=== PATIENT | male | born 1935 ===

== ENCOUNTER 2016-06-20 15:24 | Emergency (ER) | payer OTHER ==
[2016-06-20 15:38] VITALS: BP 141/78; PULSE 69; RESP 20; TEMP 97.9; O2SAT 90
--- NOTE | 2016-06-20 16:02 | ED PDOC ---
HPI: General Adult Time Seen by Provider: 06/20/16 15:58 Chief Complaint (Nursing): Shortness Of Breath History Per: Patient History/Exam Limitations: no limitations Additional Complaint(s): 81yo male comes to the ED with family for complaint of 2 weeks of shortness of breath, especially at night causing trouble sleeping. Also reports chronic leg swelling which is now moderate. PMD: Cecil Casanova Cardiology: Merle sob 2 weeks especially at night causign trouble sleeping. leg swelling chronic for a long time. now pretty moderate. 2 years ago had oxygen. no cp. left shoulder left knee and right lumbar pain which is chronic. Past Medical History Reviewed: Historical Data, Nursing Documentation, Vital Signs Vital Signs: Last Vital Signs Temp 97.9 F 06/20/16 15:35 Pulse 69 06/20/16 15:35 Resp 20 06/20/16 16:06 BP 141/78 06/20/16 15:35 Pulse Ox 90 L 06/20/16 22:16 - Medical History PMH: HTN - Family History Family History: States: No Known Family Hx - Social History Current smoker - smoking cessation education provided: No Ex-Smoker (has not smoked in the last 12 months): Yes Drugs: Denies - Home Medications Home Medications: Ambulatory Orders Medication Instructions Recorded Clopidogrel [Plavix] 1 tab PO DAILY 06/20/16 Metoprolol Tartrate [Lopressor] 25 mg PO DAILY 06/20/16 Valsartan/Hydrochlorothiazide 1 tab PO DAILY 06/20/16 [Diovan Hct 320-25 mg Tablet] amLODIPine [Norvasc] 1 tab PO DAILY 06/20/16 traMADol [Ultram] 50 mg PO TID PRN 4 Days 06/20/16 - Allergies Allergies/Adverse Reactions: Allergies Allergy/AdvReac Type Severity Reaction Status Date / Time Penicillins Allergy RASH Verified 06/20/16 15:33 Review of Systems ROS Statement: Except As Marked, All Systems Reviewed And Found Negative (and as per HPI) Cardiovascular: Positive for: Paroxysmal Noc. Dyspnea. Negative for: Chest Pain Respiratory: Positive for: Cough, Sputum. Negative for: Hemoptysis Musculoskeletal: Positive for: Shoulder Pain, Back Pain Physical Exam - Reviewed Nursing Documentation Reviewed: Yes Vital Signs Reviewed: Yes - Physical Exam Appears: Positive for: Well, Non-toxic, No Acute Distress Head Exam: Positive for: ATRAUMATIC, NORMAL INSPECTION, NORMOCEPHALIC Skin: Positive for: Warm, Dry Eye Exam: Positive for: EOMI, PERRL ENT: Negative for: Pharyngeal Erythema, Tonsillar Exudate Neck: Positive for: Painless ROM, Supple Cardiovascular/Chest: Positive for: Regular Rate, Rhythm, Chest Non Tender. Negative for: Murmur Respiratory: Positive for: Rales (at the bases, minimal), Other (clear to auscultation). Negative for: Respiratory Distress Gastrointestinal/Abdominal: Positive for: Soft, Other (protuberant). Negative for: Tenderness Back: Positive for: Other (tenderness to palpation right SI joint. Negative straight leg raise.) Extremity: Positive for: Other (2+ pitting edema left lower leg, 1+ pitting edema right lower extremity) Lymphatic: Negative for: Adenopathy Neurologic/Psych: Positive for: Alert. Negative for: Motor/Sensory Deficits - Laboratory Results Result Diagrams: 06/20/16 16:34 06/20/16 16:34 - ECG ECG: Positive for: Interpreted By Me, Viewed By Me ECG Rhythm: Positive for: Sinus Rhythm, Right Bundle Branch Block Interpretation Of ECG: Marked T wave inversions V1-V5. O2 Sat by Pulse Oximetry: 90 Medical Decision Making Medical Decision Making: XR Lumbar Spine December 2015 arthritis impression shortness of breath, nocturnal chf paroxysmal noctural dyspnea, renal insufficience, pleural effusion, pneumonia, PE, DVT Labs demonstrate elevated ddimer, elevated troponin, otherwise no clinically significant lab abnormalities. CT chest ordered. 8p DW Dr Bloom Cardiology. He reports that patient's symptoms are chronic for him. If workup negative, pt can be discahrged and f/u wiht him in AM. EXAM: CT Angiography Chest With Intravenous Contrast CLINICAL HISTORY: 81 years old, male; Signs and symptoms; Shortness of breath; Additional info: SOB TECHNIQUE: Axial computed tomographic angiography images of the chest with intravenous contrast using pulmonary embolism protocol. This CT exam was performed using one or more of the following dose reduction techniques: automated exposure control, adjustment of the mA and/or kV according to patient size, and/or use of iterative reconstruction technique. MIP reconstructed images were created and reviewed. Coronal and sagittal reformatted images were created and reviewed. CONTRAST: 80 mL of [id number] administered intravenously. COMPARISON: No relevant prior studies available. FINDINGS: Pulmonary arteries: No pulmonary embolism. Aorta: Moderate atherosclerotic disease of aorta with mild peripheral thrombus within descending thoracic aorta. Ectasia of ascending thoracic aorta, up to 4.1 cm in diameter. Ectasia of descending thoracic aorta, up to 3.8 cm in diameter. Lungs: Mild peripheral atelectasis/scarring. No consolidation. Few calcified granulomas. Pleural space: No significant effusion. No pneumothorax. Heart: Mild cardiomegaly. No significant pericardial effusion. Mediastinum: Small hiatal hernia. Bones/joints: Degenerative changes of spine. No acute fracture. Soft tissues: Unremarkable. Lymph nodes: No pathologically enlarged lymph nodes. Liver: Hepatic cyst. Kidneys and ureters: Few probable renal cysts. IMPRESSION: 1. No CT evidence of pulmonary embolism. 2. Incidental/non-acute findings are described above Repeat troponin negative Disposition - Clinical Impression Clinical Impression: Lumbar degenerative disc disease, CHF (congestive heart failure) Counseled Patient/Family Regarding: Studies Performed, Diagnosis, Need For Followup, Rx Given - Disposition Referrals: Santana Bloom MD [Staff Provider] - ([facility]) Disposition: Routine/Home Disposition Time: 22:00 Condition: GOOD Prescriptions: traMADol [Ultram] 50 mg PO TID PRN 4 Days PRN Reason: SEVERE PAIN ONLY Instructions: Heart Failure (ED), Leg Edema (ED), Degenerative Disc Disease (ED ) Print Language: CITIZEN OF [place] Additional Comments - Additional Comments Additional Comments: Scribe Attestation: Documented by Eber Anderson acting as a scribe for Susan Thompson MD. Provider Scribe Attestation: All medical record entries made by the Scribe were at my direction and personally dictated by me. I have reviewed the chart and agree that the record accurately reflects my personal performance of the history, physical exam, medical decision making, and the department course for this patient. I have also personally directed, reviewed, and agree with the discharge instructions and disposition.
[2016-06-20 16:40] LABS: BASO # 0.1 K/uL (0.0-0.2); BASO % 0.7 % (0.0-2.0); EOS # 0.3 K/uL (0.0-0.7); EOS % 4.3 % (0.0-4.0); HEMATOCRIT 42.5 % (35.0-51.0); LYMPH # 1.8 K/uL (1.0-4.3); MEAN CELL VOLUME 96.9 fl (80.0-94.0); MEAN CORPUSCULAR HEMOGLOBIN 32.3 pg (27.0-31.0); MEAN CORPUSCULAR HGB CONC 33.4 g/dL (33.0-37.0); MEAN PLATELET VOLUME 7.4 fl (7.2-11.7); MONO # 0.6 K/uL (0.0-0.8); NEUT # 4.8 K/uL (1.8-7.0); NRBC % 0.1 % (0.0-0.0); RED CELL DISTRIBUTION WIDTH 14.7 % (11.5-14.5); WHITE BLOOD COUNT 7.6 K/uL (4.8-10.8)
--- NOTE | 2016-06-20 16:49 | RAD ---
HISTORY: chest pain COMPARISON: 03/14/2012 FINDINGS: LUNGS: No active pulmonary disease. PLEURA: No significant pleural effusion identified, no pneumothorax apparent. CARDIOVASCULAR: Grossly normal heart size. Sternotomy wires noted. No congestive change. OSSEOUS STRUCTURES: No significant abnormalities. VISUALIZED UPPER ABDOMEN: Normal. OTHER FINDINGS: None. IMPRESSION: No active disease.
[2016-06-20 16:52] LABS: ALKALINE PHOSPHATASE 68 U/L (38-126); ALT/SGPT 26 U/L (21-72); AST/SGOT 31 U/L (17-59); BLOOD UREA NITROGEN 21 mg/dl (9-20); CALCIUM 10.3 mg/dL (8.4-10.2); CARBON DIOXIDE 30 mmol/L (22-30); CHLORIDE 98 mmol/L (98-107); GFR AFRICAN-AMERICAN > 60; GLUCOSE,RANDOM 92 mg/dL (75-110); PHOSPHOROUS 3.3 mg/dl (2.5-4.5); POTASSIUM 4.5 MMOL/L (3.6-5.0); SODIUM 136 mmol/l (132-148); TOTAL PROTEIN 7.6 G/DL (6.3-8.2)
[2016-06-20 17:11] LABS: PARTIAL THROMBOPLASTIN TIME 25.9 SECONDS (23.3-32.5)
--- NOTE | 2016-06-20 17:29 | US ---
PROCEDURE: Bilateral lower extremity venous duplex Doppler. HISTORY: leg swelling COMPARISON: Left lower extremity Doppler ultrasound performed 08/06/14 TECHNIQUE: Bilateral common femoral, superficial femoral, popliteal and posterior tibial veins were evaluated. Flow was assessed with color Doppler, compressibility, assessment of phasic flow and augmentation response. FINDINGS: COMMON FEMORAL VEIN: Right CFV: Unremarkable. Left CFV: Unremarkable. SUPERFICIAL FEMORAL VEIN: Right SFV: Unremarkable. Left SFV: Unremarkable. POPLITEAL VEIN: Right Popliteal: Unremarkable. Left Popliteal: Unremarkable. POSTERIOR TIBIAL VEIN: Right PTV: Unremarkable. Left PTV: Unremarkable. OTHER FINDINGS: None. IMPRESSION: No evidence of deep venous thrombosis.
[2016-06-20] MEDS ORDERED: Iodixanol 320 MG/ML 100 ML BOTTLE IV ONE (20:27)
[2016-06-20] MEDS ORDERED: Sodium Chloride 0.9% 50 ML IV ONE (20:27)
--- NOTE | 2016-06-20 21:39 | CT ---
EXAM: CT Angiography Chest With Intravenous Contrast CLINICAL HISTORY: 81 years old, male; Signs and symptoms; Shortness of breath; Additional info: SOB TECHNIQUE: Axial computed tomographic angiography images of the chest with intravenous contrast using pulmonary embolism protocol. This CT exam was performed using one or more of the following dose reduction techniques: automated exposure control, adjustment of the mA and/or kV according to patient size, and/or use of iterative reconstruction technique. MIP reconstructed images were created and reviewed. Coronal and sagittal reformatted images were created and reviewed. CONTRAST: 80 mL of administered intravenously. COMPARISON: No relevant prior studies available. FINDINGS: Pulmonary arteries: No pulmonary embolism. Aorta: Moderate atherosclerotic disease of aorta with mild peripheral thrombus within descending thoracic aorta. Ectasia of ascending thoracic aorta, up to 4.1 cm in diameter. Ectasia of descending thoracic aorta, up to 3.8 cm in diameter. Lungs: Mild peripheral atelectasis/scarring. No consolidation. Few calcified granulomas. Pleural space: No significant effusion. No pneumothorax. Heart: Mild cardiomegaly. No significant pericardial effusion. Mediastinum: Small hiatal hernia. Bones/joints: Degenerative changes of spine. No acute fracture. Soft tissues: Unremarkable. Lymph nodes: No pathologically enlarged lymph nodes. Liver: Hepatic cyst. Kidneys and ureters: Few probable renal cysts. IMPRESSION: 1. No CT evidence of pulmonary embolism. 2. Incidental/non-acute findings are described above.
== END 2016-06-20 22:31 | disposition home or self-care (01) ==
LOC: H.ER 15:24
DX: M51.36 Other intervertebral disc degeneration, lumbar region (principal); I50.9 Heart failure, unspecified; R60.9 Edema, unspecified; R06.02 Shortness of breath; I10 Essential (primary) hypertension; Z87.891 Personal history of nicotine dependence; Z88.0 Allergy status to penicillin
CPT/HCPCS: 71010; 71275; 80053; 83735; 83880; 84100; 84443; 84484; 85025; 85378; 85610; 85730; 93970; 99285; Q9967

== ENCOUNTER 2018-02-15 08:43 | Emergency (ER) | payer OTHER ==
[2018-02-15 08:47] VITALS: BMI 31.9
[2018-02-15] MEDS ORDERED: Lidocaine 5% Patch TD STA (09:32)
[2018-02-15] MEDS ORDERED: Lidocaine 5% Patch TD ONE (10:06)
[2018-02-15 10:14] LABS: BASO # 0.1 K/uL (0.0-0.2); EOS # 0.2 K/uL (0.0-0.7); EOS % 2.5 % (0.0-4.0); HEMOGLOBIN 14.6 g/dL (12.0-18.0); LYMPH # 1.2 K/uL (1.0-4.3); LYMPH % 16.6 % (20.0-40.0); MEAN CELL VOLUME 96.9 fl (80.0-94.0); MEAN CORPUSCULAR HEMOGLOBIN 31.5 pg (27.0-31.0); MEAN CORPUSCULAR HGB CONC 32.5 g/dL (33.0-37.0); MEAN PLATELET VOLUME 7.7 fl (7.2-11.7); MONO # 0.6 K/uL (0.0-0.8); MONO % 8.1 % (0.0-10.0); NEUT # 5.2 K/uL (1.8-7.0); NEUT % 71.8 % (50.0-75.0); NRBC % 0.1 % (0.0-0.0); RBC 4.63 Mil/uL (4.40-5.90); RED CELL DISTRIBUTION WIDTH 13.7 % (11.5-14.5); WHITE BLOOD COUNT 7.2 K/uL (4.8-10.8)
[2018-02-15 10:28] LABS: ALB/GLOB RATIO 1.1 (1.0-2.1); ALBUMIN 4.1 g/dL (3.5-5.0); ALT/SGPT 24 U/L (21-72); AST/SGOT 26 U/L (17-59); BLOOD UREA NITROGEN 22 mg/dl (9-20); CALCIUM 10.1 mg/dL (8.4-10.2); GFR NON-AFRICAN AMERICAN > 60
[2018-02-15 10:30] LABS: BARBITURATES, UR NEGATIVE (NEGATIVE); BENZODIAZEPINES, UR NEGATIVE (NEGATIVE); OPIATES, UR NEGATIVE (NEGATIVE); PHENCYCLIDINE, UR NEGATIVE (NEGATIVE)
--- NOTE | 2018-02-15 10:34 | ED PDOC ---
HPI: Back Time Seen by Provider: 02/15/18 09:03 Chief Complaint (Nursing): Back Pain History Per: Manager Title Onset/Duration Of Symptoms: Days (x1 week) Additional Complaint(s): Yoshi Alexandre is a 82 year old male with a past medical history of HTN, who presents to the emergency department accompanied by his daughter for atraumatic bilateral lower back pain that radiates to both hips and down the left knee, onset x1 week. Patient reports he has a history of "pinched nerve" and was diagnosed via CT scan more than x2 years ago. He did not get an MRI done because he has a pacemaker. Patient further states he has not taken any medications to relieve his symptoms. Patient further reports he used to have physical therapy for lower back and followed up with Dr. Nico Casanova for pain relief. He reports to have urinary frequency but denies hematuria, dysuria, incontinence, trauma, abdominal pain, weakness, fever, and chills. PMD: Nico Casanova Past Medical History Reviewed: Historical Data, Nursing Documentation, Vital Signs Vital Signs: Last Vital Signs Temp 97.3 F L 02/15/18 08:46 Pulse 73 02/15/18 08:46 Resp 17 02/15/18 08:46 BP 153/83 H 02/15/18 08:46 Pulse Ox 93 L 02/15/18 08:46 - Medical History PMH: HTN - Surgical History Surgical History: No Surg Hx - Family History Family History: States: Unknown Family Hx - Home Medications Home Medications: Ambulatory Orders Medication Instructions Recorded Clopidogrel [Plavix] 1 tab PO DAILY 06/20/16 Metoprolol Tartrate [Lopressor] 25 mg PO DAILY 06/20/16 RX: amLODIPine [Norvasc] 1 tab PO DAILY 06/20/16 RX: traMADol [Ultram] 50 mg PO TID PRN 4 Days tab 06/20/16 Valsartan/Hydrochlorothiazide 1 tab PO DAILY 06/20/16 [Diovan Hct 320-25 mg Tablet] Lidocaine 5% [Lidoderm] 1 ea TD DAILY PRN #10 patch 02/15/18 Tramadol HCl [Ultram] 50 mg PO BID PRN #10 tablet 02/15/18 - Allergies Allergies/Adverse Reactions: Allergies Allergy/AdvReac Type Severity Reaction Status Date / Time Penicillins Allergy RASH Verified 06/20/16 15:33 Review of Systems ROS Statement: Except As Marked, All Systems Reviewed And Found Negative Constitutional: Negative for: Fever, Chills Gastrointestinal: Negative for: Abdominal Pain Genitourinary Male: Positive for: Frequency. Negative for: Dysuria, Incontinence, Hematuria Musculoskeletal: Positive for: Back Pain, Other (hip pain/left knee pain) Neurological: Negative for: Weakness Physical Exam - Reviewed Nursing Documentation Reviewed: Yes Vital Signs Reviewed: Yes - Physical Exam Appears: Positive for: No Acute Distress Cardiovascular/Chest: Positive for: Regular Rate, Rhythm. Negative for: Murmur Respiratory: Positive for: Normal Breath Sounds. Negative for: Respiratory Distress Back: Positive for: Other (bilateral paralumbar tenderness). Negative for: L CVA Tenderness, R CVA Tenderness, Vertebral Tenderness Extremity: Positive for: Normal ROM, Other (lower extremity strength 5/5). Negative for: Pedal Edema, Deformity Neurologic/Psych: Positive for: Alert, Oriented (x3), Gait (steady and unassisted ) - Laboratory Results Result Diagrams: 02/15/18 10:00 02/15/18 10:00 - ECG O2 Sat by Pulse Oximetry: 93 (RA) Pulse Ox Interpretation: Abnormal Medical Decision Making Medical Decision Making: Time: 931 Plan: --CMP --Urine drug screen --ED urine dipstick --CBC with differential --Flexeril 10 mg PO --Lidoderm 1 ea --Ultram 50 mg PO --LS spine ap/lat --Urinalysis --CT abd/pelvis IV contrast On re-evaluation pt. reports moderate pain relief. CT abd/pelvis: There is aneurysmal dilatation of the descending thoracic aorta measuring over 4.4 cm in greatest transverse dimension. Atherosclerotic plaque changes are present as well. Multiple bilateral renal cysts as described. There are 2 small low-attenuation foci within the hepatic parenchyma the largest likely representing a hepatic cyst. 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 substation superintendent [id number] Dr. Briggs discussed CT results with patient and with daughter at bedside. Advised to f/u with Dr. Casanova or CT surgeon for further evaluation of enlarging aortic aneurysm. Pt. verbalized correct understanding of necessary care and f/u. Gait steady, unassisted. Reports pain is still minimal at this time. Repeat VS improved. Scribe Attestation: Documented by Syed Saucedo, acting as a scribe for Darin Stapleton Provider Scribe Attestation: All medical record entries made by the Scribe were at my direction and personally dictated by me. I have reviewed the chart and agree that the record accurately reflects my personal performance of the history, physical exam, medic al decision making, and the department course for this patient. I have also personally directed, reviewed, and agree with the discharge instructions and disposition. Disposition - Clinical Impression Clinical Impression: Low back pain - Patient ED Disposition Is Patient to be Admitted: No - Disposition Referrals: [facility] [Outside] Disposition: Routine/Home Disposition Time: 15:46 Condition: IMPROVED Additional Instructions: FOLLOW UP WITH DR. CASANOVA FOR FURTHER EVALUATION RETURN TO ED IMMEDIATELY IF SYMPTOMS WORSEN YOSHI ALEXANDRE, thank you for letting us take care of you today. Your provider was Jose Juan Briggs III, DO and you were treated for RT SIDE LOWER BACK PAIN. The emergency medical care you received today was directed at your acute symptoms. If you were prescribed any medication, please fill it and take as directed. It may take several days for your symptoms to resolve. Return to the Emergency Department if your symptoms worsen, do not improve, or if you have any other problems. Please contact your doctor or call one of the physicians/clinics you have been referred to that are listed on the Patient Visit Information form that is included in your discharge packet. Bring any paperwork you were given at discharge with you along with any medications you are taking to your follow up visit. Our treatment cannot replace ongoing medical care by a primary care provider outside of the emergency department. Thank you for allowing the [facility] team to be part of your care today. If you had an X-Ray or CT scan: A Radiologist will review the ED reading if any change in treatment is needed we will contact you. If you had a blood, urine, or wound culture: It will take several days for the results, if any change in treatment is needed we will contact you. If you had an STI test: It will take 48 hours for the results. Please call after 1 week if you have not heard back. Prescriptions: Lidocaine 5% [Lidoderm] 1 ea TD DAILY PRN #10 patch PRN Reason: Pain Tramadol HCl [Ultram] 50 mg PO BID PRN #10 tablet PRN Reason: Pain Instructions: Low Back Pain (DC) Forms: [employer] (Serbian) Print Language: RWANDAN
[2018-02-15 10:35] LABS: SQUAMOUS EPITHIAL 1 /hpf (0-5); URINE BILIRUBIN NEGATIVE (NEGATIVE); URINE BLOOD NEGATIVE (NEGATIVE); URINE CLARITY CLEAR (Clear); URINE COLOR YELLOW (YELLOW); URINE GLUCOSE (UA) NEG (NEGATIVE); URINE LEUKOCYTE ESTERASE NEG Leu/uL (Negative); URINE PROTEIN 30 mg/dL (NEGATIVE)
[2018-02-15] MEDS ORDERED: Iohexol 300 100 ML IJ ONE (13:03)
[2018-02-15] MEDS ORDERED: Sodium Chloride 0.9% 50 ML IV ONE (13:03)
[2018-02-15 15:04] VITALS: RESP 19
--- NOTE | 2018-02-15 15:23 | CT ---
Date of service: 02/15/2018 PROCEDURE: CT Abdomen and Pelvis with contrast HISTORY: back pain radiating to b/l lower abd COMPARISON: Comparison made with prior CT chest 06/20/2016 which image the upper abdomen TECHNIQUE: Contiguous helical/transaxial sections of the abdomen performed in standard fashion following intravenous injection of approximately 90 cc Omnipaque 300 contrast material. Axial delayed imaging obtained. Additional 2D sagittal and coronal reformats generated Radiation dose: Total exam DLP = 1477.15 mGy-cm. This CT exam was performed using one or more of the following dose reduction techniques: Automated exposure control, adjustment of the mA and/or kV according to patient size, and/or use of iterative reconstruction technique. FINDINGS: LOWER THORAX: Heart is markedly enlarged. There is aneurysmal dilatation of the descending thoracic aorta measuring over 4.4 cm in greatest transverse dimension. Atherosclerotic plaque changes are present as well. Small hiatal hernia. Mild bibasilar atelectasis felt to be associate with chronic appearing scarring as well. LIVER: Liver exhibits normal size. There appear to be at least 2 low-attenuation foci left lobe liver the largest on elliptical shaped focus measuring approximately 17.4 x 9.3 mm with Hounsfield units in the low to mid teens likely representing a hepatic cyst.. Portal and splenic veins are opacified. GALLBLADDER AND BILE DUCTS: Gallbladder is physiologically distended. No evidence of intraluminal gallbladder calculi. PANCREAS: Pancreas appears slightly atrophic and fatty replaced. No obvious pancreatic masses collections or calcifications. No significant pancreatic ductal dilatation. SPLEEN: Unremarkable. ADRENALS: There are no adrenal lesions seen. KIDNEYS AND URETERS: Kidneys demonstrate symmetric nephrograms. No evidence of nephrolithiasis or hydronephrosis. There are multiple bilateral renal cysts the largest exophytic cyst arising from the lower pole right kidney measuring approximately 9.8 x 9.1 x 8.55 cm. No evidence of nephrolithiasis or hydronephrosis. 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 There is aneurysmal dilatation of the upper abdominal/suprarenal aorta (above the level of the superior margin of the endo graft) measuring approximately 4.1 cm with soft and partially calcified atherosclerotic plaque. BOWEL: Evaluation of the bowel is limited due to the lack of oral contrast material. The stomach is collapsed felt to account for thick-walled appearance. Rule out gastritis. Visualized loops of small bowel exhibit normal contour and caliber. No evidence of acute mechanical small bowel obstruction. There is a moderate amount of stool seen within the cecum and, at ascending and transverse colon suggesting mild fecal retention/constipation. No definitive evidence of mural wall thickening. There are a few scattered colonic diverticula without radiographic evidence of acute diverticulitis. APPENDIX: Normal appendix. PERITONEUM: Unremarkable. No free fluid. No free air. Small to medium-sized bilateral fat containing inguinal hernias left slightly larger than right. There is also a small to medium sized fat containing umbilical hernia. LYMPH NODES: Unremarkable. No enlarged lymph nodes. BLADDER: Urinary bladder is physiologically distended. No evidence of intraluminal urinary bladder calculi. REPRODUCTIVE: Multiple tiny radiation implant seeds are seen distributed throughout the prostate gland BONES: Multilevel degenerative spondylosis of the lower thoracic and lumbar spine. OTHER FINDINGS: None. IMPRESSION: Marked cardiomegaly. 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 Multiple bilateral renal cysts as described. There are 2 small low-attenuation foci within the hepatic parenchyma the largest likely representing a hepatic cyst. 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
[2018-02-15 16:17] VITALS: BP 136/80; PULSE 78; TEMP 97.6
--- NOTE | 2018-02-15 18:28 | RAD ---
Date of service: 02/15/2018 PROCEDURE: Radiographs of the Lumbar Spine. HISTORY: Pain COMPARISON: Comparison made with prior radiographs of the lumbar spine 03/14/2012. Correlation made with subsequent CT scan of the abdomen pelvis which image the lumbar spine in 3 planes FINDINGS: BONES: Normal alignment. No listhesis. No fracture. DISC SPACES: Mild to moderate multilevel degenerative spondylosis of the lumbar spine. Changes include varying degrees of disc space narrowing, endplate eburnation with anterolateral and smaller posterior osteophyte formation. The facets also hypertrophic throughout. OTHER FINDINGS: Interval placement of endovascular stent grafts within the mid to distal aorta and extending into both iliac arteries.. Note also made of multiple radiation implant seeds within the distribution of the prostate gland. IMPRESSION: No acute fractures. Multilevel degenerative spondylosis as described
[2018-02-15 18:43] VITALS: O2SAT 93
== END 2018-02-15 16:17 | disposition home or self-care (01) ==
LOC: H.ER 08:43
DX: M54.5 Low back pain (principal)
CPT/HCPCS: 72100; 74177; 80053; 81003; 85025; 99283; G0480; Q9967